=== PATIENT | female | born 1945 | race Caucasian/White ===

== ENCOUNTER 2016-12-22 21:46 | Emergency (ER) | payer OTHER ==
[~2016-12-22] VITALS: Ht 162.6 cm; Wt 82.0 kg
[~2016-12-22 21:46] MED LIST: AMLO5TAB2 PO; OMEP20TA PO; PRED20 PO; ZOCO20TA PO
[2016-12-22] MEDS ORDERED: IBUP400T20 PO (21:56)
[2016-12-22] MEDS ORDERED: TRAM50TA PO (21:56)
[2016-12-22 21:57] VITALS: BP 163/80; PULSE 98; RESP 20; TEMP 98.9; O2SAT 98
[2016-12-22] MEDS ORDERED: ORPHENADRINE INJ 60 MG/2 ML AMP IM ONE (22:00)
[2016-12-22] MEDS ORDERED: DEXAMETHASONE SOD PHOS 20 MG/5 ML VIAL IM ONE (22:00)
[2016-12-22] MEDS ORDERED: KETOROLAC TROMETHAMINE 60 MG/2 ML (IM) VIAL IM ONE (22:00)
[2016-12-22] MEDS ORDERED: oxyCODONE/ACETAMINOPHEN 5 MG/325 MG TAB PO ONE (22:15)
[2016-12-22] MEDS ORDERED: LIDO5DIS35 TOPICAL (22:28)
[2016-12-22] MEDS ORDERED: PERC5TAB12 PO (22:29)
--- NOTE | 2016-12-22 22:30 | PD ---
HPI Chief Complaint: Pain: Acute or Chronic Time Seen by Provider: 22:00 Travel History International Travel<30 days: No Contact w/Intl Traveler<30days: No Traveled to known affect area: No History of Present Illness HPI Patient is 71-year-old female who presents emergency department for evaluation of left knee pain. Patient states the pain is been ongoing chronically however it is exacerbated over the last 1-2 weeks due to surgery she had on her right knee. She denies any new injury or trauma. She states that she has taken tramadol once today, ibuprofen 400 mg once today with no relief of her symptoms. Patient reports not taking any of the medications consistently due to lack of effectiveness. She does state that she will apply Biofreeze again not consistently. She has a walker and indicated home which she has not been using consistently. She reports pain as a 7/10. PFSH Past Medical History Arthritis: Yes High Cholesterol: Yes Diminished Hearing: No Gastrointestinal Disorders: Yes (POSSIBLE IRRITABLE BOWEL SYNDROME.) Hypertension: Yes Immunizations Current: Yes Thyroid Disease: Yes Tetanus Vaccination: > 5 Years Influenza Vaccination: Yes ?: Not Past Surgical History Hysterectomy: Yes (PARTIAL) Other Surgery: Yes (VASCULAR SURGERY RT LEG) Social History Alcohol Use: No Tobacco Use: No Substance Use: No Allergies-Medications (Allergen,Severity, Reaction): Coded Allergies: Sulfa (Verified Allergy, Severe, Anaphylaxis, 12/22/16) Reported Meds & Prescriptions Reported Meds & Active Scripts Active Reported Ibuprofen 400 Mg Tab 400 Mg PO Q6H PRN Tramadol (Tramadol HCl) 50 Mg Tab 50 Mg PO Q6H PRN Amlodipine (Amlodipine Besylate) 5 Mg Tab 5 Mg PO DAILY Zocor (Simvastatin) 20 Mg Tab 20 Mg PO DAILY Omeprazole 20 Mg Tab 20 Mg PO DAILY Review of Systems Except as stated in HPI: all other systems reviewed are Neg Musculoskeletal: Positive: Myalgias, Arthralgias, Pain Physical Exam Narrative GENERAL: Well-nourished, well-developed patient. SKIN: Warm and dry. HEAD: Normocephalic. EYES: No scleral icterus. No injection or drainage. NECK: Supple, trachea midline. No JVD or lymphadenopathy. CARDIOVASCULAR: Regular rate and rhythm without murmurs, gallops, or rubs. RESPIRATORY: Breath sounds equal bilaterally. No accessory muscle use. GASTROINTESTINAL: Abdomen soft, non-tender, nondistended. MUSCULOSKELETAL: No cyanosis, or edema. No erythema to the left knee. Decreased range of motion with flexion and extension. Positive pedal pulse, presses in the second capillary refill. BACK: Nontender without obvious deformity. No CVA tenderness. Data Data Last Documented VS Vital Signs Date Time Temp Pulse Resp B/P Pulse Ox O2 Delivery O2 Flow Rate FiO2 12/22/16 21:57 98.9 98 20 163/80 98 Orders Orphenadrine Inj (Norflex Inj) (12/22/16 22:00) Dexamethasone Inj (Decadron Inj) (12/22/16 22:00) Ketorolac Inj (Toradol Inj) (12/22/16 22:00) Oxycodone-Acetamin 5-325 Mg (Percocet (12/22/16 22:15) MDM Medical Decision Making Medical Screen Exam Complete: Yes Emergency Medical Condition: Yes Interpretation(s) Vital Signs Date Time Temp Pulse Resp B/P Pulse Ox O2 Delivery O2 Flow Rate FiO2 12/22/16 21:57 98.9 98 20 163/80 98 Differential Diagnosis Sprain versus strain versus arthritis versus other Narrative Course Patient is a 71-year-old female who presented to the emergency for evaluation of left knee pain. Patient states pain is been ongoing for several weeks secondary to having surgery on the other knee, it got so bad today that she presented to the emergency department. She has had no new injury or trauma. There is no obvious deformities noted. Patient does report a history of osteoarthritis. She was given dexamethasone, Norflex, Toradol, and a Percocet in the emergency department. She has not been compliant with her home medications, ambulatory aides, or topical therapies. Patient was encouraged to take medications as directed, follow-up with her primary doctor, alternate heat and ice to affected area and continue range of motion exercises. Patient was advised that she can do range of motion exercises while seated to avoid extra stress on the joint. Patient and daughter verbalized understanding of these instructions. Patient stable for discharge. Diagnosis Primary Impression: Knee pain Qualified Code: M25.562 - Left knee pain, unspecified chronicity Referrals: Primary Care Physician Patient Instructions: Arthritis (GEN), General Instructions, Knee Pain (ED) Additional Instructions: Use her walker or cane to ambulate Take medications as directed Alternate heat and ice to affected area Continue range range of motion exercises Avoid bed rest Follow-up with your primary doctor Return to emergency department for any new or worsening symptoms Med/Other Pt SpecificInfo: Prescription(s) given Scripts Oxycodone-Acetaminophen (Percocet)5-325 mg Tab1 Tab PO Q6H PRN (PAIN) #10 TAB Ref 0 Prov:Garcia Hines MD 12/22/16 Lidocaine Patch 12 HR (Lidoderm Patch 12 HR)5% Patch1 Patch TOPICAL DAILY PRN ( PAIN) 10 Days Ref 0 Remove patch after 12 hours Prov:Robyn López 12/22/16 Disposition: 01 DISCHARGE HOME Condition: Stable Robyn López Dec 22, 2016 22:29
== END 2016-12-22 22:54 | disposition home or self-care (01) ==
LOC: PHEFT 21:46
DX: M25.562 Pain in left knee (principal); E78.00 Pure hypercholesterolemia, unspecified; I10 Essential (primary) hypertension; E07.9 Disorder of thyroid, unspecified
CPT/HCPCS: 96372; 99283; J1100; J1885; J2360

== ENCOUNTER → 2017-09-04 | Day surgery (SDC) | payer OTHER ==
[~2017-09-04] VITALS: Ht 165.1 cm; Wt 75.8 kg
[~2017-09-04] MED LIST changes: +ATROPINE SULFATE 1% OPHT SOLN 2 ML BTL ONE; +BALANCED SALT SOLN OPHT IRRIG 15 ML BTL ONE; +CALC1TAB87 PO; +CHLORHEXIDINE GLUCONATE 2 % 1 PACK (2 CLOTHS) TOPICAL PRN; +DEXAMETHASONE SOD PHOS 4 MG/ML VIAL IV ONE; +DEXAMETHASONE SOD PHOS 4 MG/ML VIAL ONE; +DO NOT ADM ANY ANTICOAGULANT DRUGS PRN; +EPINEPHrine HCL (1:1000) 1 MG/ML VIAL ONE; +IBUP400T20 PO; +INSULIN HUMAN REGULAR 1,000 UNITS/10 ML VIAL SQ PRN; +LACTATED RINGER'S 1000 ML IV PRN; +LIDOCAINE HCL 1% PF 5 ML AMPULE OTHER ONE; +METOPROLOL TARTRATE 25 MG TAB PO PRN; +MULT-65 PO; +OCUVTAB PO; +ONDANSETRON HCL 4 MG/2 ML VIAL IV PUSH ONE; +PHENYLEPH/NS 1000 MCG/10 ML SYR IV ONE; +POVIDONE IODINE 5% (ANTISEPSIS KIT) 4 APPLICATIONS EACH NARE PRN; -PRED20 PO; +PROPOFOL 200 MG/20 ML AMP IV ONE; +SALOPAD4 TOPICAL; +SODIUM CHLORID 0.9% 500 ML IV PRN; +STERILE WATER FOR INJECTION 20 ML VIAL ONE; +TOBRAMYCIN/DEXAMETHASONE OPTH OINT 3.5 GM TUBE ONE; +TRIAMCINOLONE ACETONIDE/PF 40 MG/ML OPTH VIAL ONE; +ceFAZolin INJ 1,000 MG VIAL ONE; +ePHEDrine/NS 25 MG/5 ML SYR IV ONE
[2017-09-04] MEDS: TROPICAMIDE 1% OPHT SOLN 15 ML BTL LEFT EYE SCH ×4 (10:01→10:46)
[2017-09-04] MEDS: PHENYLEPHRINE HCL 2.5% OPTH SOLN 2 ML BTL LEFT EYE SCH ×4 (10:02→10:47)
[2017-09-04] MEDS: CYCLOPENTOLATE HCL 1% OPHT SOLN 2 ML BTL LEFT EYE SCH ×4 (10:03→10:48)
[2017-09-04] MEDS: ATROPINE SULFATE 1% OPHT SOLN 5 ML BTL LEFT EYE SCH ×3 (10:15→10:45)
[2017-09-04 10:20] LABS: AUTOMATED NEUTROPHIL # 3.1 TH/MM3 (1.8-7.7); BASOPHIL # 0.1 TH/MM3 (0-0.2); EOSINOPHIL # 0.4 TH/MM3 (0-0.4); EOSINOPHIL % 6.9 % (0.0-4.0); HEMATOCRIT 41.7 % (35.0-46.0); HEMOGLOBIN 14.2 GM/DL (11.6-15.3); LYMPH % 25.9 % (9.0-44.0); LYMPHOCYTE # 1.5 TH/MM3 (1.0-4.8); MEAN CELL VOLUME 91.5 FL (80.0-100.0); MEAN CORPUSCULAR HEMOGLOBIN 31.1 PG (27.0-34.0); MEAN PLATELET VOLUME 9.7 FL (7.0-11.0); MONO % 11.5 % (0.0-8.0); MONOCYTE # 0.6 TH/MM3 (0-0.9); NEUT % 54.7 % (16.0-70.0); PLATELET COUNT 205 TH/MM3 (150-450); RED BLOOD COUNT 4.56 MIL/MM3 (4.00-5.30); RED CELL DISTRIBUTION WIDTH 12.7 % (11.6-17.2); WHITE BLOOD COUNT 5.6 TH/MM3 (4.0-11.0)
[2017-09-04 15:01] VITALS: BP 136/64; PULSE 88; RESP 16; TEMP 97.4; O2SAT 99
--- NOTE | 2017-09-04 17:29 | MP ---
cc: MISTY HINOJOSA MD DATE OF SURGERY 09/04/17 PREOPERATIVE DIAGNOSIS Visually significant epiretinal membrane with macular pucker, left eye. POSTOPERATIVE DIAGNOSIS Visually significant epiretinal membrane with macular pucker, left eye. PROCEDURE Trans pars plana vitrectomy with membranectomy and air-fluid exchange, left eye. SURGEON Dr. Laura Hinojosa ANESTHESIA General laryngeal mask anesthesia. INDICATIONS Mrs. Tijerina is a 72-year-old woman who is suffering from decreased central vision and distortion in her left eye down to visual acuity of 22/100. She was seen in the office and a significant epiretinal membrane was seen overlying the macula creating striae or pucker. The patient wished to proceed electively with a vitrectomy and membranectomy to try and improve her visual functioning and decrease her distortion. The risks and benefits of the surgery were discussed with the patient including the fact that her already present cataract would probably worsen after the surgery. She wished to proceed and informed consent was obtained. No guarantee was made as to visual outcome. PROCEDURE IN DETAIL She was brought to [facility] operating room one and placed on the operating table. Appropriate anesthesia monitoring devices were applied and she was placed under general anesthesia using a laryngeal mask. The left eye was identified as the operative site and then prepped and draped in the usual AND sterile fashion. The lid speculum was placed. At this point, an appropriate time-out was called with the surgical team agreeing to the procedure and planned surgical site. The microscope was brought around and adjusted. Using the Patrick 23-gauge vitrectomy system, the trocar cannulas were placed 4 mm posterior to the limbus after first displacing the conjunctiva. The first one was placed at approximately 3 o'clock and verified to be in the posterior chamber. An infusion cannula was affixed to it and was turned on. Two additional trocar cannulas were placed at 10 at 2 o'clock and a small amount of Kenalog was injected into the posterior chamber to help visualize the vitreous. The eye was entered with the Endoilluminator light pipe and vitrectomy cutter and using the flat contact lens a core vitrectomy was carried out. Using a Kanu's pick, the membrane which was elevated over the superonasal macula was engaged from underneath and lifted up and then it broke into almost two pieces. It was a very large membrane so the Kanu's pick was exchanged for the vitrectomy cutter on aspiration only and the elevated area was engaged under aspiration and then peeled inferotemporally where it spontaneously released and was removed by the vitrectomy handpiece. The flat lens was exchanged for the BIOME wide angle viewing system and, using that viewing, the peripheral retina was removed. Plugs were placed back in the eye and the fundus was inspected with the indirect ophthalmoscope and scleral depression. No breaks were found. Using the soft tipped linear extrusion needle and BIOME wide angle viewing system, an air-fluid exchange was performed after which time the plugs were placed back in the eyes and the cannulas were removed one by one with tamponade of the site with a cotton swab and diathermy to the overlying conjunctiva. The last one to be removed was the infusion cannula using the same steps and the eye remained formed and with good pressure and no visible air leaks. Subtenons injection of Ancef 125 mg in 0.5 ml and Decadron 2 mg in a 0.5 ml were given along with atropine drops on the cornea. The lid speculum was then removed and the patient undraped. TobraDex ointment was placed on the cornea and the left eye was patched and shielded. The patient had the laryngeal mass removed in the room and was returned to recovery in good condition laying on her right side. When awake and alert, she will be asked to assume a face down position overnight. MD JULES Hernandes/ /2:11 PM /5:14 PM
--- NOTE | 2017-09-05 07:43 | EKG ---
Date Performed: 09/04/2017 Time Performed: 09:13:26 PTAGE: 72 years EKG: Sinus rhythm LEFT AXIS DEVIATION SLIGHT NONSPECIFIC INTRAVENTRICULAR CONDUCTION DELAY ABNORMAL ECG NO PREVIOUS TRACING DOCTOR: Ever Villegas Interpretating Date/Time 09/05/2017 07:41:32
== END | disposition home or self-care (01) ==
LOC: HSDC 08:37
PROVIDERS: ATTEND Ophthalmology
DX: H35.372 Puckering of macula, left eye (principal); I10 Essential (primary) hypertension; E78.00 Pure hypercholesterolemia, unspecified; E11.9 Type 2 diabetes mellitus without complications; R94.31 Abnormal electrocardiogram [ECG] [EKG]; M19.90 Unspecified osteoarthritis, unspecified site; Z86.73 Personal history of transient ischemic attack (TIA), and cerebral infarction without residual deficits; Z79.899 Other long term (current) drug therapy; Z79.82 Long term (current) use of aspirin
CPT/HCPCS: 00145; 67041; 85025; 93005; J0171; J0690; J1100; J2370; J2405; J3010; J3300; J7120